=== PATIENT | male | born 1950 | race Caucasian/White ===

== ENCOUNTER 2020-10-01 10:59 | Outpatient (CLI) | payer MEDICARE, SELFPAY | END 2020-10-01 11:00 | disposition home or self-care (01) | LOC: ANHAUDIO 11:01 | PROVIDERS: PCP Internal Medicine; Referring Provider Otolaryngology; Visit Provider Otolaryngology | DX: H90.3 Sensorineural hearing loss, bilateral (principal) | CPT/HCPCS: 92557; 92567 ==

== ENCOUNTER 2024-01-17 07:37 | Emergency (ER) | payer MEDICARE, SELFPAY ==
--- NOTE | ~2024-01-17 | XR_ITS ---
EXAMINATION: XR chest 2V 01/17/2024 11:31 INDICATION: Chest pain PROCEDURE: 2 view chest COMPARISON: No prior studies for comparison. FINDINGS: The lungs are clear. The cardiomediastinal silhouette is within normal limits. There are no pleural effusions. There is no pneumothorax suspected. IMPRESSION: 1: NO ACUTE CARDIOPULMONARY DISEASE. Reviewed, dictated and finalized at location B.
--- NOTE | 2024-01-17 07:39 | ECG_ITS ---
Test Date: 2024-01-17 07:45:56 Measurements Intervals [place] Rate: 93 P: 76 MI: 149 QRS: 63 QRSD: 99 T: 51 QT: 365 QTc: 454 Interpretive Statements SINUS RHYTHM NORMAL ECG No previous ECG available for comparison Electronically Signed On 01-17-2024 10:44:54 CDT by Carlo Alvarez M.D.
[2024-01-17 07:41] VITALS: BP 150/87; PULSE 98; RESP 20; TEMP 36.4; O2SAT 97
--- NOTE | 2024-01-17 07:47 | ED.GENADULT ---
HPI - General Adult General Chief complaint: Chest Pain Stated complaint: chest pain Time Seen by Provider: 01/17/24 07:38 History of Present Illness HPI narrative: 73-year-old male with no prior cardiac history presenting to the emergency department for evaluation for chest pain that radiates to his back. Patient states the pain started approximately 3:00 a.m. this morning. Patient did take some antacid medications states that this did help. Upon arrival emergency department patient states the pain is improved but is still present. Patient denies any recent coughs colds fevers, denies any falls or injuries, patient denies any prior history of PE DVT your ACS. Patient did have a stress test a few years ago that was negative patient has no stents in his heart. Patient denies ever having pain like this before. Patient does not appear to be in significant distress upon arrival emergency department. Related Data Home Medications Medication Instructions Recorded Confirmed finasteride 5 mg tablet 5 mg PO DAILY 09/16/20 09/16/20 pantoprazole 20 mg tablet,delayed 20 mg PO QAM 09/16/20 09/16/20 release sildenafil 25 mg tablet 25 mg PO DAILY PRN 09/16/20 09/16/20 Allergies Allergy/AdvReac Type Severity Reaction Status Date / Time No Known Allergies Allergy Mild Verified 01/17/24 07:38 Review of Systems Review of Systems: All systems reviewed & are unremarkable except as noted in HPI and below PMFSH Social History Social History (Updated 09/16/20 @ 13:13 by Jacqueline Noel MA) Smoking status: Never smoker Alcohol intake: never Substance use: never Exam Narrative: APPEARANCE: Well appearing, no pain, no distress, well-nourished. HEAD: normocephalic, atraumatic. EYES: PERRLA/EOMI, conjunctivae clear. NOSE: Normal no drainage EARS:TMS clear with good light reflex. THROAT: Pharynx clear, no exudate. NECK: Supple. No adenopathy, no masses. RESPIRATORY: Airway patent, respirations nonlabored. Clear to auscultation bilaterally, no rales, rhonchi, wheezing. CARDIOVASCULAR: Regular rate and rhythm without murmurs rubs or gallops. ABDOMINAL: Soft, nontender, nondistended, normal bowel sounds MUSCULOSKELETAL: Moves all extremities. Strength/ROM intact, No edema, No calf tenderness. NEURO: Alert. Cranial nerves II through XII intact. Grossly intact SKIN: Warm, dry. Normal Color Course Vital Signs Vital signs: Vital Signs Temperature 97.6 F 01/17/24 07:41 Pulse Rate 98 01/17/24 07:41 Respiratory Rate 20 01/17/24 07:41 Blood Pressure 150/87 H 01/17/24 07:41 Pulse Oximetry 97 01/17/24 07:41 Oxygen Delivery Room Air 01/17/24 07:41 Temperature 97.6 F 01/17/24 10:54 Pulse Rate 85 01/17/24 12:02 Respiratory Rate 13 01/17/24 12:02 Blood Pressure 124/79 01/17/24 12:02 Pulse Oximetry 97 01/17/24 12:02 Oxygen Delivery Room Air 01/17/24 07:57 Medical Decision Making MDM Narrative Medical decision making narrative: 73-year-old male presenting to the emergency department for evaluation for intermittent chest pain. Patient is afebrile with no leukocytosis and a stable hemoglobin of 14.6. INR is 1.1. No acute abnormalities on the patient's CMP patient has negative serial troponins. No evidence of urinary tract infection. Chest x-ray showed no acute cardiopulmonary allergy. Patient was encouraged close follow-up with primary care physician for additional outpatient cardiac testing. All questions concerns were addressed. Differential Diagnosis Differential Diagnosis: ACS, pneumonia, esophagitis, gastritis, colitis, diverticulitis Vital Signs Vital Signs: Vital Signs Temperature 97.6 F 01/17/24 07:41 Pulse Rate 98 01/17/24 07:41 Respiratory Rate 20 01/17/24 07:41 Blood Pressure 150/87 H 01/17/24 07:41 Pulse Oximetry 97 01/17/24 07:41 Oxygen Delivery Room Air 01/17/24 07:41 Temperature 97.6 F 01/17/24 10:54 Pulse Rate 85 01/17/24 12:0
[2024-01-17 07:57] VITALS: O2SAT 97
[2024-01-17] MEDS: FAMOTIDINE 20 MG/2 ML VIAL IV PUSH (08:04)
[2024-01-17] MEDS: ASPIRIN 81 MG CHEWABLE TABLET 324 MG PO (08:04)
[2024-01-17] MEDS: PANTOPRAZOLE SODIUM IV 40 MG VIAL IV PUSH (08:04)
[2024-01-17] MEDS: NITROGLYCERIN SL 0.4 MG TABLET SUBLINGUAL (08:04)
[2024-01-17 08:08] LABS: Basophils Percent Auto 0.3 % (0.2-1.2); Eosinophils Absolute Auto 0.1 K/mm3 (0-0.3); Hematocrit 43.7 % (42.0-52.0); Hemoglobin 14.6 g/dL (14.0-18.0); Immature Granulocyte Absolute 0.04 K/mm3 (0.00-0.031); Immature Granulocyte Percent A 0.4 % (0-0.5); Lymphocytes Absolute Auto 1.03 K/mm3 (0.9-3.2); Mean Corpuscular HGB Conc 33.4 g/dl (32-36); Mean Corpuscular Hemoglobin 32.9 pg (26-34); Mean Corpuscular Volume 98.4 fl (80-100); Mean Platelet Volume 8.8 fl (7.4-10.4); Monocytes Absolute Auto 0.8 K/mm3 (0.1-0.6); Monocytes Percent Auto 8.9 % (2.6-8.5); Neutrophils Absolute Auto 7.3 K/mm3 (1.3-6.7); Neutrophils Percent Auto 78.4 % (45.5-73.1); Platelet Count Result 213 k/mm3 (150-375); Red Blood Count 4.44 M/mm3 (4.6-6.20); Red Cell Distribution Width 11.7 % (11.5-14.5); White Blood Count 9.4 K/mm3 (4.5-10.0)
[2024-01-17 08:17] LABS: Alanine Aminotransferase 28 U/L (6-50); Albumin Level 4.7 g/dL (3.5-5.1); Alkaline Phosphatase 72 U/L (38-126); Anion Gap 9 mmol/L (4-12); Aspartate Amino Transferase 29 U/L (17-59); Blood Urea Nitrogen 17 mg/dL (9-20); Calcium 9.3 mg/dL (8.4-10.2); Carbon Dioxide 27 mmol/L (22-30); Chloride 104 mmol/L (98-107); Estimated CRCL calculation 81 ml/min; Estimated Glomerular Filt Rate > 60; Glucose 122 mg/dL (65-110); Potassium 4.1 mmol/L (3.4-5.0); Sodium 140 mmol/L (137-145)
[2024-01-17 08:24] LABS: Add Urine Microscopic? NO; Appearance Urine Clear (Clear); Bilirubin Urine Negative (Negative); Blood Urine Negative (Negative); Color Urine Yellow (Yellow); Glucose Urine UA Negative (Negative); Ketones Urine Negative (Negative); Leukocyte Esterase Ur Negative LEU/UL (Negative); Nitrate Urine Negative (Negative); Protein Urine Negative (Negative); Specific Grav Ur 1.022 (1.001-1.035); Urobilinogen Urine 0.2 mg/dL (<2.0); pH Urine 5.5 (5.0-9.0)
[2024-01-17 08:29] LABS: Troponin I < 0.012 ng/mL (0.000-0.034)
[2024-01-17 08:36] LABS: INR 1.1; Prothrombin Time 14.6 Seconds (11.1-14.7)
[2024-01-17 09:34] VITALS: BP 119/82; PULSE 80; RESP 14; O2SAT 100
--- NOTE | 2024-01-17 10:25 | ECG_ITS ---
Test Date: 2024-01-17 10:39:25 Measurements Intervals [place] Rate: 78 P: 22 [place]: 144 QRS: 50 QRSD: 105 T: 39 QT: 391 QTc: 446 Interpretive Statements SINUS RHYTHM NORMAL ECG Compared to ECG 01/17/2024 07:45:56 No significant changes Electronically Signed On 01-17-2024 10:49:37 CDT by Carlo Alvarez M.D.
[2024-01-17 10:54] VITALS: BP 109/79; PULSE 81; RESP 14; TEMP 36.4; O2SAT 95
[2024-01-17 11:12] LABS: Troponin I < 0.012 ng/mL (0.000-0.034)
[2024-01-17 12:02] VITALS: BP 124/79; PULSE 85; RESP 13; O2SAT 97
== END 2024-01-17 12:13 | disposition home or self-care (01) ==
PROVIDERS: Emergency Provider Emergency Medicine; PCP Internal Medicine
DX: R07.89 Other chest pain (principal)
CPT/HCPCS: 36415; 71046; 80053; 81003; 84484; 85025; 85610; 85730; 93005; 96374; 96375; 99284; A9270; J2470